=== PATIENT | female | born 1995 | race African-American/Black ===

== ENCOUNTER 2018-09-20 23:44 | Emergency (ER) | payer SELFPAY ==
[~2018-09-20] VITALS: Ht 177.8 cm; Wt 82.0 kg
[2018-09-21] MEDS ORDERED: ACETAMINOPHEN 325MG TABLET PO ONE (00:45)
[2018-09-21] MEDS ORDERED: FAMOTIDINE 20MG TABLET PO ONE (02:30)
[2018-09-21 02:44] VITALS: BP 118/72
== END 2018-09-21 02:44 | disposition home or self-care (01) ==
LOC: ER 23:44
DX: R07.89 Other chest pain (principal); R06.02 Shortness of breath; J45.909 Unspecified asthma, uncomplicated; R10.13 Epigastric pain
CPT/HCPCS: 71045; 81025; 93005; 99284

== ENCOUNTER 2019-08-26 08:51 | Emergency (ER) | payer OTHER ==
[~2019-08-26] VITALS: Ht 175.3 cm; Wt 82.0 kg
[2019-08-26] MEDS ORDERED: AMOX500T2 MT (09:10)
[2019-08-26] MEDS ORDERED: ibuprofen (09:10)
[2019-08-26] MEDS ORDERED: IBUPROFEN 600MG TABLET PO ONE (09:30)
[2019-08-26 09:56] VITALS: BP 122/74
== END 2019-08-26 09:58 | disposition home or self-care (01) ==
LOC: ER 08:56
DX: J06.9 Acute upper respiratory infection, unspecified (principal); J45.909 Unspecified asthma, uncomplicated
CPT/HCPCS: 71045; 99283